=== PATIENT | male | born 2000 | race Caucasian/White ===

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

== ENCOUNTER 2021-07-04 22:36 | Emergency (ER) | payer OTHER ==
[~2021-07-04] VITALS: Ht 177.8 cm; Wt 77.3 kg
[2021-07-04 22:40] VITALS: TEMP 97.5
[2021-07-04 23:17] VITALS: BP 140/91; PULSE 78
== END 2021-07-04 23:17 | disposition home or self-care (01) ==
LOC: COL.ER 22:36
DX: S01.81XA Laceration without foreign body of other part of head, initial encounter (principal); W22.8XXA Striking against or struck by other objects, initial encounter